=== PATIENT | female | born 2005 | race Caucasian/White ===

== ENCOUNTER → 2024-09-06 14:13 | Outpatient (CLI) | payer OTHER, SELFPAY ==
--- NOTE | 2024-09-06 14:19 | DI.US.S_ITS ---
PROCEDURE: US PELVIC COMPLETE INDICATIONS: EVALUATE PELVIC PAIN TECHNIQUE: Real-time scanning was performed of the pelvic organs, with image documentation. Additional endovaginal scanning was necessary due to incomplete visualization of the adnexal and endometrial structures by transabdominal scanning. COMPARISON: None. FINDINGS: Uterus: Uterus is anteverted and normal in size at 7.3 x 4.4 x 5.6 cm. The myometrium is homogeneous. The endometrium measures 9 mm combined thickness. No endometrial mass or fluid. Ovaries: The right ovary measures 3.4 x 2.2 x 1.6 cm, with a calculated ovarian volume of 6.3 cc. The left ovary measures 4.0 x 2.8 x 2.3 cm, with a calculated ovarian volume of 13.5 cc. Possible corpus luteum in left ovary is seen measures 1.8 x 1.6 x 1.7 cm in size. Greater than 12 follicles can be seen in each ovary. No adnexal masses are seen. Other: Small amount of free fluid is seen in posterior cul-de-sac inferior to the ovaries. IMPRESSION: 1. Normal appearing uterus and endometrium. 2. Possible corpus luteal cyst in left ovary. No solid appearing ovarian lesion. Small amount of free fluid in posterior cul-de-sac. 3. Greater than 12 follicles are seen in each ovary. Findings meet the [place] definition of polycystic ovaries. In the absence of ovulatory dysfunction or clinically/biochemically diagnosed hyperandrogenism, findings are non specific and do not indicate the presence of polycystic ovarian syndrome. We strive to produce accurate, complete, and clear reports of imaging services. To assist us in improving patient care, this report was composed using standard report templates and voice recognition software. Therefore, it may contain abnormal punctuation, insertions and/or omissions. Occasional wrong-word or sound-alike substitutions may occur. Though we review the report and make efforts to correct it, we do recommend that the report be read carefully in proper context to recognize any text inaccuracies. Dictated by: Gil Watson M.D. on 09/06/2024 at 22:47 Approved by: Gil Watson M.D. on 09/06/2024 at 22:50
== END ==
PROVIDERS: Referring Provider Nurse Practitioner Obstetrics & Gynecology; Visit Provider Nurse Practitioner Obstetrics & Gynecology
DX: R10.2 Pelvic and perineal pain (principal)
CPT/HCPCS: 76830; 76856